=== PATIENT | male | born 1970 | race Two or more races ===

== ENCOUNTER 2024-07-30 13:00 | Day surgery (SDC) | payer MEDICAID, SELFPAY ==
[2024-07-30] VITALS (13 sets, daily range): BP systolic 137–188; BP diastolic 79–97; PULSE 89–99; RESP 10–20; TEMP 36.2–36.9; O2SAT 95–100; BMI 23.6
[2024-07-30] MEDS: RINGERS LACTATED 1000 ML 1,000 ML 100 ML IV (15:03)
[2024-07-30] MEDS: fentaNYL CIT INJ 50 mCg/ML AMP 2ML IV (15:05)
[2024-07-30] MEDS: MIDAZOLAM INJ 1 MG/ML VIAL 2 ML 2 MG IV (15:06)
== END 2024-07-30 16:20 | disposition home or self-care (01) ==
PROVIDERS: Referring Provider Surgery; Visit Provider Surgery
PROC: 0DBE8ZX Excision of Large Intestine, Via Natural or Artificial Opening Endoscopic, Diagnostic (ICD-10-PCS; CPT 45380; principal; 2024-07-30 15:15)
DX: Z12.11 Encounter for screening for malignant neoplasm of colon (principal); K63.89 Other specified diseases of intestine; I10 Essential (primary) hypertension; E11.9 Type 2 diabetes mellitus without complications
CPT/HCPCS: 45378; J2250; J3010; J7120

== ENCOUNTER → 2024-08-26 | Outpatient (CLI) | payer MEDICAID, SELFPAY ==
--- NOTE | 2024-08-26 09:00 | XR_ITS ---
Examination: Abdomen AP single view Technique: AP portable supine abdomen, single view Exam date and time: August 26, 2024 0919 hours INDICATIONS: Incomplete colonoscopy one month ago. FINDINGS: Moderate stool throughout the colon No obstruction Mild to moderate bilateral hip osteoarthritis IMPRESSION: Moderate stool throughout the colon
== END | disposition home or self-care (01) ==
PROVIDERS: PCP Surgery; Referring Provider Surgery; Visit Provider Surgery
DX: Z12.11 Encounter for screening for malignant neoplasm of colon (principal); K59.00 Constipation, unspecified
CPT/HCPCS: 74018